=== PATIENT | female | born 2000 | race Caucasian/White ===

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

== ENCOUNTER 2020-04-11 22:58 | Emergency (ER) | payer OTHER, MEDICAID ==
[~2020-04-11] VITALS: Ht 167.6 cm; Wt 118.2 kg
[~2020-04-11 22:58] MED LIST changes: +EFFEXOR 3737.5 MG/TA PO; +IBU600 MG PO; +PROCARDIA XL 6060 MG PO; +VITAMIN C500 MG PO
[2020-04-11 23:07] VITALS: TEMP 97.8
[2020-04-11 23:41] LABS: BASO # 0.1 (0.0-0.2); BASO % 0.4 % (0.0-2.0); EOS # 0.2 (0.0-0.7); EOS % 1.2 % (0-4.0); GRAN # 10.2 (1.4-6.5); HEMOGLOBIN 11.5 g/dl (12.5-16.0); LYMPH # 3.5 (1.2-3.4); LYMPH % 23.4 % (20.0-51.0); MEAN CELL VOLUME 85 fl (80.0-100.0); MEAN CORPUSCULAR HEMOGLOBIN 28 pg (27.0-31.0); MEAN CORPUSCULAR HGB CONC 33 g/dl (33.0-37.0); MEAN PLATELET VOLUME 8.8 fl (7.4-10.4); MONO # 0.8 (0.1-0.6); MONO % 5.3 % (1.7-9.3); PLATELET COUNT 306 K/mm3 (130-400); RED BLOOD COUNT 4.11 M/mm3 (4.10-5.30); REDCELL DISTRIBUTION WIDTH-CV 13.3 % (11.5-14.5)
[2020-04-11 23:45] LABS: HEMATOCRIT 34.9 % (37.0-47.0)
[2020-04-11 23:52] LABS: CREATININE, serum 0.59 (0.52-1.25); MAGNESIUM 1.7 mg/dL (1.6-2.3); POTASSIUM 3.2 mmol/L (3.4-5.0)
[2020-04-12 00:22] LABS: TSH w REFLEX 3.04 uIU/mL (0.465-4.680)
[2020-04-12 01:50] VITALS: BP 133/69; PULSE 95
== END 2020-04-12 01:50 | disposition home or self-care (01) ==
LOC: COL.ER 22:58
PROVIDERS: Emergency Medicine
DX: O99.412 Diseases of the circulatory system complicating pregnancy, second trimester (principal); R00.0 Tachycardia, unspecified; O99.282 Endocrine, nutritional and metabolic diseases complicating pregnancy, second trimester; E87.6 Hypokalemia; O26.812 Pregnancy related exhaustion and fatigue, second trimester; R55 Syncope and collapse; O99.332 Smoking (tobacco) complicating pregnancy, second trimester; F17.210 Nicotine dependence, cigarettes, uncomplicated; Z3A.21 21 weeks gestation of pregnancy; Z88.6 Allergy status to analgesic agent
CPT/HCPCS: J7030